=== PATIENT | female | born 2005 ===

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

== ENCOUNTER 2024-12-22 17:25 | Outpatient (REF) | payer BC, SELFPAY | END 2024-12-22 17:26 | disposition home or self-care (01) | LOC: NCHCN 17:25 | PROVIDERS: Visit Provider Nurse Practitioner Family | DX: N89.8 Other specified noninflammatory disorders of vagina (principal) | CPT/HCPCS: 81513; 87481; 87491; 87591; 87661; 87480; 87510; 87660 ==